=== PATIENT | male | born 1995 | race Caucasian/White ===

== ENCOUNTER 2018-09-03 18:04 | Outpatient (REF) | payer MEDICAID, SELFPAY ==
[2018-09-03 20:47] LABS: Bilirubin Negative (Negative); Blood Negative (Negative); Clarity Clear; Glucose Negative (Negative); Ketones Negative (Negative); Leukocyte Esterase Negative (Negative); Nitrite Negative (Negative); Specific Gravity 1.015 (1.005-1.025); Urobilinogen 0.2 EU/dL (Up TO 0.2); pH 7.5 (5-8)
== END 2018-09-03 18:24 ==
LOC: LBN 18:04
PROVIDERS: PCP General Practice; Visit Provider General Practice
DX: R10.9 Unspecified abdominal pain (principal)
CPT/HCPCS: 81003

== ENCOUNTER 2018-10-07 10:08 | Emergency (ER) | payer MEDICAID, SELFPAY ==
[2018-10-07 10:12] VITALS: BP 112/79; PULSE 98; RESP 16; TEMP 36.6; O2SAT 95
--- NOTE | 2018-10-07 10:13 | W.ED.GENAD ---
Discharge Plan Disposition Patient Disposition: HOME Condition: Stable Discharge Details Chief Complaint: EarProblem Clinical Impression: Acute left otitis media Primary Care Provider: Salas Rodriguez ED Provider: Pradeep Paulino Home Meds and New Rx's Prescriptions: New amoxicillin 875 mg tablet 875 mg PO BID Qty: 20 RF: 0 No Action gabapentin 600 MG tablet 1,200 mg PO BID RF: 0 buprenorphine-naloxone [Suboxone] 1 EACH film 16 mg Sublingual DAILY RF: 0 Vyvanse 60 MG capsule 70 mg PO DAILY RF: 0 ibuprofen 800 MG tablet 800 mg PO Q8H PRN (Reason: Pain) Qty: 15 RF: 0 amoxicillin 875 MG tablet 875 mg PO Q12H Qty: 19 RF: 0 Discharge Instructions Instructions: Otitis Media (ED) Medical Decision Making 23 yo male comes in with left ear pain for a week. denies any trauma or q tip use or swimming. His external mastoids and external auditory canals are normal bilaterally and right tm is normal, left tm is red and bulging. will tx with abx, advised f/u with pcp if not better in a week and return if worsening Differential Diagnosis aom, otitis externa HPI General Mode of arrival: ambulatory. Date/Time Provider Initiated Documentation: 10/07/18 10:09. Limitations to Documentation: no limitations. Information obtained by: patient. History of Present Illness 23 year old M presents to the emergency department with the chief complaint of left ear pain, described as moderate, Quality is described as aching, Patient started experiencing this week(s) (1) and it has been constant. No relieving factors improve symptom(s), No exacerbating factors reported . Patient did receive the following treatments prior to arrival, none Related Data Home Medications Medication Instructions Recorded Confirmed buprenorphine-naloxone [Suboxone] 16 mg SUBLINGUAL DAILY 08/15/15 10/18/17 gabapentin 1,200 mg PO BID 08/15/15 10/18/17 Vyvanse 70 mg PO DAILY 10/16/16 10/07/18 amoxicillin 875 mg PO Q12H #19 tab 10/18/17 ibuprofen 800 mg PO Q8H PRN #15 tablet 10/18/17 amoxicillin 875 mg PO BID #20 tab 10/07/18 Previous Rx's Medication Instructions Recorded amoxicillin 875 mg PO Q12H #19 tab 10/18/17 ibuprofen 800 mg PO Q8H PRN #15 tablet 10/18/17 amoxicillin 875 mg PO BID #20 tab 10/07/18 Allergies Allergy/AdvReac Type Severity Reaction Status Date / Time No Known Allergies Allergy Unverified 10/18/17 18:57 Review of Systems Review of Systems All systems reviewed & are unremarkable except as noted in HPI and below Constitutional Denies chills, Denies fever(s) and Denies weakness ENT Denies change in voice Cardiovascular Denies chest pain and Denies dyspnea Respiratory Denies cough and Denies dyspnea Gastrointestinal Denies abdominal pain, Denies nausea and Denies vomiting Integumentary/Breasts Denies rash Neurologic Denies weakness [facility] Social History Smoking/Tobacco Use Status: Current every day Drug use: Current Sobriety Do you feel safe in your relationship?: Yes Exam Const General: no acute distress Orientation: alert HENMT Head: normal to inspection Ears: external ears normal General nose exam: external nose normal Mouth: moist mucous membranes Eyes General: appearance normal, both eyes and all related structures Neck Neck: normal visual inspection Resp Effort & Inspection: normal respiratory effort and able to speak in complete sentences Cardio Rate: regular rate Skin General skin exam: no rashes or lesions noted Neuro General: alert and oriented x3 Extrem General: normal to inspection Psych Mental Status: mental status grossly normal
--- NOTE | 2018-10-07 10:22 | ED.GENADUL_ITS ---
Discharge Plan Disposition Patient Disposition: HOME Condition: Stable Discharge Details Chief Complaint: EarProblem Clinical Impression: Acute left otitis media Primary Care Provider: Salas Rodriguez ED Provider: Pradeep Paulino Home Meds and New Rx's Prescriptions: New amoxicillin 875 mg tablet 875 mg PO BID Qty: 20 RF: 0 No Action gabapentin 600 MG tablet 1,200 mg PO BID RF: 0 buprenorphine-naloxone [Suboxone] 1 EACH film 16 mg Sublingual DAILY RF: 0 Vyvanse 60 MG capsule 70 mg PO DAILY RF: 0 ibuprofen 800 MG tablet 800 mg PO Q8H PRN (Reason: Pain) Qty: 15 RF: 0 amoxicillin 875 MG tablet 875 mg PO Q12H Qty: 19 RF: 0 Discharge Instructions Instructions: Otitis Media (ED) Medical Decision Making 23 yo male comes in with left ear pain for a week. denies any trauma or q tip use or swimming. His external mastoids and external auditory canals are normal bilaterally and right tm is normal, left tm is red and bulging. will tx with abx, advised f/u with pcp if not better in a week and return if worsening Differential Diagnosis aom, otitis externa HPI General Mode of arrival: ambulatory . Date/Time Provider Initiated Documentation: 10/07/18 10:09 . Limitations to Documentation: no limitations . Information obtained by: patient . History of Present Illness 23 year old M presents to the emergency department with the chief complaint of left ear pain, described as moderate, Quality is described as aching, Patient started experiencing this week(s) (1) and it has been constant. No relieving factors improve symptom(s), No exacerbating factors reported . Patient did receive the following treatments prior to arrival, none Related Data Home Medications Medication Instructions Recorded Confirmed buprenorphine-naloxone [Suboxone] 16 mg SUBLINGUAL DAILY 08/15/15 10/18/17 gabapentin 1,200 mg PO BID 08/15/15 10/18/17 Vyvanse 70 mg PO DAILY 10/16/16 10/07/18 amoxicillin 875 mg PO Q12H #19 tab 10/18/17 ibuprofen 800 mg PO Q8H PRN #15 tablet 10/18/17 amoxicillin 875 mg PO BID #20 tab 10/07/18 Previous Rx's Medication Instructions Recorded amoxicillin 875 mg PO Q12H #19 tab 10/18/17 ibuprofen 800 mg PO Q8H PRN #15 tablet 10/18/17 amoxicillin 875 mg PO BID #20 tab 10/07/18 Allergies Allergy/AdvReac Type Severity Reaction Status Date / Time No Known Allergies Allergy Unverified 10/18/17 18:57 Review of Systems Review of Systems All systems reviewed & are unremarkable except as noted in HPI and below Constitutional Denies chills, Denies fever(s) and Denies weakness ENT Denies change in voice Cardiovascular Denies chest pain and Denies dyspnea Respiratory Denies cough and Denies dyspnea Gastrointestinal Denies abdominal pain, Denies nausea and Denies vomiting Integumentary/Breasts Denies rash Neurologic Denies weakness [facility] Social History Smoking/Tobacco Use Status: Current every day Drug use: Current Sobriety Do you feel safe in your relationship?: Yes Exam Const General: no acute distress Orientation: alert HENMT Head: normal to inspection Ears: external ears normal General nose exam: external nose normal Mouth: moist mucous membranes Eyes General: appearance normal, both eyes and all related structures Neck Neck: normal visual inspection Resp Effort & Inspection: normal respiratory effort and able to speak in complete sentences Cardio Rate: regular rate Skin General skin exam: no rashes or lesions noted Neuro General: alert and oriented x3 Extrem General: normal to inspection Psych Mental Status: mental status grossly normal
== END 2018-10-07 10:51 | disposition home or self-care (01) ==
LOC: ER 10:38
PROVIDERS: Emergency Provider Emergency Medicine; PCP General Practice
DX: H66.92 Otitis media, unspecified, left ear (principal); F17.210 Nicotine dependence, cigarettes, uncomplicated
CPT/HCPCS: 99283

== ENCOUNTER 2019-02-18 17:56 | Emergency (ER) | payer MEDICAID, SELFPAY ==
[2019-02-18 17:58] VITALS: BP 132/80; PULSE 80; RESP 16; TEMP 36.5; O2SAT 96
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
== END 2019-02-18 19:10 | disposition home or self-care (01) ==
PROVIDERS: Emergency Provider Nurse Practitioner Family; PCP General Practice
DX: S90.32XA Contusion of left foot, initial encounter (principal); W26.8XXA Contact with other sharp object(s), not elsewhere classified, initial encounter; L73.9 Follicular disorder, unspecified
CPT/HCPCS: 99282

== ENCOUNTER 2019-08-28 10:21 | Emergency (ER) | payer MEDICAID, SELFPAY ==
[2019-08-28 10:30] VITALS: BP 131/95; PULSE 103; RESP 18; TEMP 36.4; O2SAT 97
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
== END 2019-08-28 11:02 | disposition home or self-care (01) ==
PROVIDERS: Emergency Provider Emergency Medicine
DX: N50.811 Right testicular pain (principal)
CPT/HCPCS: 99282

== ENCOUNTER 2019-12-02 20:44 | Emergency (ER) | payer MEDICAID, SELFPAY ==
[2019-12-02 20:51] VITALS: BP 139/83; PULSE 97; RESP 18; TEMP 36.9; O2SAT 99
[2019-12-02 22:00] LABS: Abs Immature Grans 0.01 k/cumm (0.0-0.09); Absolute Basophil Count 0.05 k/cumm (0.0-0.2); Absolute Eosinophil Count 0.21 k/cumm (0.0-0.7); Absolute Monocyte Count 0.65 k/cumm (0.11-0.7); Absolute Neutrophil Count 2.22 k/cumm (1.2-6.7); Basophils % 0.8; Eosinophils % 3.5; HCT 40.9 % (40.0-50.0); HGB 14.3 g/dL (13.5-17.5); Immature Grans % 0.2 %; Lymphocytes % 47.1; Mean Corpuscular Hemoglobin 29.5 pg (27.0-33.0); Mean Corpuscular Volume 84.5 fL (80-95); Mean Platelet Volume 10.2 fL (8.0-11.0); Monocytes % 10.9; Neutrophils % 37.5; Platelet Count 296 x1000/uL (130-400); RBC 4.84 m/cumm (4.50-6.00); RBC Distribution Width 12.4 % (11.8-14.1); White Blood Cell Count 5.94 k/cumm (4.4-10.8)
[2019-12-02 22:10] LABS: ALT 56 U/L (16-63); AST 22 U/L (15-37); Albumin 4.2 g/dL (3.4-5.0); Alkaline Phosphatase 107 U/L (46-116); Anion Gap 4.7 mmol/L (3-11); BUN 14 mg/dL (7-18); Bilirubin, Total 0.4 mg/dL (0.2-1.0); CO2 31.3 mmol/L (21.0-32.0); CREATININE 0.91 mg/dL (0.70-1.30); Chloride 104 mmol/L (98-107); Glucose 106 mg/dL (74-106); Sodium 140 mmol/L (136-145); Total Protein 7.7 g/dL (6.4-8.2)
[2019-12-02 22:12] LABS: Bilirubin Negative (Negative); Blood Negative (Negative); Clarity Sl Cloudy (Clear); Glucose Negative (Negative); Ketones Negative (Negative); Leukocyte Esterase Negative (Negative); Nitrite Negative (Negative); Specific Gravity 1.025 (1.005-1.025); pH 8.5 (5-8)
--- NOTE | 2019-12-02 22:13 | ED.GENADUL_ITS ---
Discharge Plan Disposition Patient Disposition: HOME Condition: Stable Discharge Details Chief Complaint: Abd Prob Clinical Impression: Abdominal pain Primary Care Provider: Megha,Local ED Provider: Jong Lebron Home Meds and New Rx's Prescriptions: Continued gabapentin 600 MG tablet 1,200 mg PO BID RF: 0 buprenorphine-naloxone [Suboxone] 1 EACH film 16 mg Sublingual DAILY RF: 0 Vyvanse 60 MG capsule 70 mg PO DAILY RF: 0 Discharge Instructions Instructions: Abdominal Pain (ED) Additional Instructions: As we discussed your evaluation here in the ER does not reveal any obvious emergent or surgical process. I recommend ylnq-qsd-quwraer medications such as Zantac or Prilosec as directed to see if this helps with your symptoms moving forward. I do recommend that she watch for new or worsening symptoms and return to the ER for any concerns. I have placed you on the care management list to help expedite outpatient primary care follow-up. If symptoms persist referral to GI and/or additional work-up may be indicated. Medical Decision Making 24-year-old gentleman presenting with what he describes as chronic abdominal discomfort his entire life. Reports as a burning in nature. Mild nausea but no vomiting. He denies any other symptoms whatsoever. He appears well, nontoxic. Given the location of his discomfort associated with burning I do question if this could be GERD, gastritis, etc. Patient does not abuse alcohol, lower suspicion for pancreatitis. Patient denies any recent trauma, no reason for this to be splenic related. I see no obvious hernia. Will obtain CBC, CMP, UA, lipase, will give GI cocktail and reassess. On reevaluation patient reports that the symptoms have been removed completely with a GI cocktail. He is resting comfortably and using his phone without difficulty. Prior meds reveal a white blood cell count of 5.94 hemoglobin 14.3 hematocrit 40.9 platelet count 296. Electrolytes are unremarkable. Creatinine 0.91, estimated GFR greater than 60. Urinalysis without obvious signs of infection or hematuria. Lipase unremarkable. Discussed work-up with patient. He is relieved and has no additional questions or concerns. Discussed an [id number]-yloosrg trial of medication such as Zantac or Prilosec to see if this helps with the symptoms on a more regular basis. I did stress the importance of outpatient follow-up and I have placed him on the care management team to help expedite outpatient care. Patient has no additional questions or concerns and is comfortable with this plan. Medical Records Medical records reviewed: Yes I reviewed the patient's medical records. Lab Data Lab results reviewed: Yes I reviewed the patient's lab results. Lab results narrative: Laboratory Tests Range/Units 12/02/19 12/02/19 12/02/19 21:55 21:55 21:56 WBC (4.4-10.8) k/cumm 5.94 RBC (4.50-6.00) m/cumm 4.84 Hgb (13.5-17.5) g/dL 14.3 Hct (40.0-50.0) % 40.9 MCV (80-95) fL 84.5 MCH (27.0-33.0) pg 29.5 MCHC (32.0-36.0) g/dL 35.0 RDW (11.8-14.1) % 12.4 Plt Count (130-400) x1000/uL 296 MPV (8.0-11.0) fL 10.2 Immature Gran % % 0.2 Neutrophils % 37.5 Lymphocytes % 47.1 Monocytes % 10.9 Eosinophils % 3.5 Basophils % 0.8 Absolute Neutrophils (1.2-6.7) k/cumm 2.22 Absolute Lymphocytes (1.2-3.4) k/cumm 2.80 Absolute Monocytes (0.11-0.7) k/cumm 0.65 Absolute Eosinophils (0.0-0.7) k/cumm 0.21 Absolute Basophils (0.0-0.2) k/cumm 0.05 Sodium (136-145) mmol/L 140 Potassium (3.5-5.1) mmol/L 4.0 Chloride (98-107) mmol/L 104 Carbon Dioxide (21.0-32.0) mmol/L 31.3 Anion Gap (3-11) mmol/L 4.7 BUN (7-18) mg/dL 14 Creatinine (0.70-1.30) mg/dL 0.91 Estimated GFR/1.73 m2 (mL/min/1.73m2) >= 60.00 Glucose (74-106) mg/dL 106 Calcium (8.5-10.1) mg/dL 9.0 Total Bilirubin (0.2-1.0) mg/dL 0.4 AST (15-37) U/L 22 ALT (16-63) U/L 56 Alkaline Phosphatase (46-116) U/L 107 Total Protein (6.4-8.2) g/dL 7.7 Albumin (3.4-5.0) g/dL 4.2 Urine Color (Yellow) Yellow Urine Clarity (Clear) Sl cloudy Urine pH (5-8) 8.5 H Ur Specific [place] (1.005-1.025) 1.025 Urine Protein (Negative) mg/dL 100 H Urine Ketones (Negative) mg/dL Negative Urine Blood (Negative) Negative Urine Nitrite (Negative) Negative Urine Bilirubin (Negative) Negative Urine Urobilinogen (Up TO 0.2) EU/dL 1.0 H Ur Leukocyte Esterase (Negative) Negative Urine RBC (0-2) HPF 3-5 H Urine WBC (0-5) HPF Negative Ur Epithelial Cells (Negative) HPF Negative Urine Crystals (Negative) HPF Many amorphous Urine Bacteria (Negative) HPF Negative Urine Casts (Negative) LPF Negative Urine Mucus (Negative) Negative Urine Other (Negative) Negative Ur Culture Indicated? No Urine Glucose (Negative) mg/dL Negative HPI General Mode of arrival: ambulatory . Date/Time Provider Initiated Documentation: 12/02/19 21:04 . Limitations to Documentation: no limitations . Information obtained by: patient . HPI Narrative: This is a 24-year-old male with history of bipolar disorder, narcotic abuse, admits to methamphetamine IV injection use, last used 4 days ago, presenting with spleen pain. He reports that he said pain in his epigastric region and left upper quadrant all my life but reports that he may have noticed it slightly more over the past 24 hours. He describes it as burning. He reports intermittent mild nausea but no vomiting. He denies any change in appetite, was able to eat sloppy [employer] for dinner tonight. Patient reports I know my spleen is in that area, I think it is my spleen that hurts. He denies any recent illness or trauma. Patient denies fever, chest pain, shortness of breath, back pain, radiation of his abdominal pain, diarrhea, constipation, dysuria or hematuria. He denies alcohol abuse. Patient reports that occasionally he feels as though that area is swollen. Related Data Home Medications Medication Instructions Recorded Confirmed buprenorphine-naloxone [Suboxone] 16 mg SUBLINGUAL DAILY 08/15/15 12/02/19 gabapentin 1,200 mg PO BID 08/15/15 12/02/19 Vyvanse 70 mg PO DAILY 10/16/16 12/02/19 Allergies Allergy/AdvReac Type Severity Reaction Status Date / Time No Known Allergies Allergy Unverified 08/28/19 10:33 General Stated Complaint: Abd Prob LENARD: 3 Review of Systems Constitutional Constitutional: Denies fatigue, Denies fever(s) and Denies weakness Cardiovascular Cardiovascular: Denies chest pain and Denies dyspnea Respiratory Respiratory: Denies cough and Denies dyspnea Gastrointestinal Gastrointestinal: Reports abdominal pain, Denies constipation, Denies diarrhea, Reports nausea and Denies vomiting Genitourinary Genitourinary: Denies hematuria and Denies dysuria Musculoskeletal Musculoskeletal: Denies back pain, Denies numbness and Denies tingling Integumentary/Breasts Skin/Breast: Denies rash Neurologic Neurologic: Denies numbness, Denies tingling and Denies weakness Endocrine Endocrine: Denies fatigue [facility] Medical History Bipolar disorder (Chronic) Narcotic abuse (Chronic) Social History Smoking/Tobacco Use Status: Current every day Tobacco Type: cigarettes Years smoked: 10 and e-cigarettes Alcohol Intake: never Drug use: Socially Substance use type: methamphetamine Details: reports using meth IV for past month 12/02/2019 Do you feel safe at home: Yes Do you feel safe in your relationship?: Yes Exam Const General: cooperative, healthy appearing, comfortable and no acute distress Orientation: alert, awake and oriented x3 HENMT Head: normal to inspection, normocephalic and atraumatic Mouth: moist mucous membranes Throat: posterior oropharynx normal Eyes Conjunctivae: conjunctivae normal Sclera: sclerae normal Neck Neck: normal visual inspection, full ROM, no meningeal signs, trachea midline and supple Chest Chest: normal inspection of the chest and normal palpation of entire chest wall Resp Effort & Inspection: normal respiratory effort and able to speak in complete sentences Auscultation: clear to auscultation bilaterally Cardio Rate: regular rate Rhythm: regular rhythm GI Inspection: normal to inspection Palpation: soft, not firm, no guarding, no hepatosplenomegaly, no hernias, no masses, no pulsatile masses, not rigid and nontender Auscultation: normal bowel sounds Back/Spine/Pelvis Back: No back tenderness Skin General skin exam: no rashes or lesions noted Neuro General: patient alert, patient awake, moves all extremities and no focal motor deficits Cognition: normal cognition Speech: speech normal Gait: normal gait Motor: muscle tone normal throughout Sensory Exam: no sensory deficits noted Psych Appearance: grossly normal Mental Status: mental status grossly normal Course Vital Signs Vital signs: Vital Signs Temperature 36.9 C 12/02/19 20:51 Pulse 97 H 12/02/19 20:51 Respiratory Rate 18 12/02/19 20:51 Blood Pressure 139/83 12/02/19 20:51 Pulse Oximetry 99 12/02/19 20:51 Temperature 36.9 C 12/02/19 20:51 Temperature Source Skin 12/02/19 20:51 Pulse 97 H 12/02/19 20:51 Respiratory Rate 18 12/02/19 20:51 Respiratory Effort 12/02/19 20:53 Blood Pressure 139/83 12/02/19 20:51 Blood Pressure Position Sitting 12/02/19 20:51 Pulse Oximetry 99 12/02/19 20:51 Oxygen Delivery Method Room Air 12/02/19 20:51 Oxygen Flow Rate 0 12/02/19 20:51 Pain Level 5 12/02/19 20:51 Lab/Test Results Lab/Test Results: Laboratory Tests Range/Units 12/02/19 12/02/19 21:55 21:55 WBC (4.4-10.8) k/cumm 5.94 RBC (4.50-6.00) m/cumm 4.84 Hgb (13.5-17.5) g/dL 14.3 Hct (40.0-50.0) % 40.9 MCV (80-95) fL 84.5 MCH (27.0-33.0) pg 29.5 MCHC (32.0-36.0) g/dL 35.0 RDW (11.8-14.1) % 12.4 Plt Count (130-400) x1000/uL 296 MPV (8.0-11.0) fL 10.2 Immature Gran % % 0.2 Neutrophils % 37.5 Lymphocytes % 47.1 Monocytes % 10.9 Eosinophils % 3.5 Basophils % 0.8 Absolute Neutrophils (1.2-6.7) k/cumm 2.22 Absolute Lymphocytes (1.2-3.4) k/cumm 2.80 Absolute Monocytes (0.11-0.7) k/cumm 0.65 Absolute Eosinophils (0.0-0.7) k/cumm 0.21 Absolute Basophils (0.0-0.2) k/cumm 0.05 Sodium (136-145) mmol/L 140 Potassium (3.5-5.1) mmol/L 4.0 Chloride (98-107) mmol/L 104 Carbon Dioxide (21.0-32.0) mmol/L 31.3 Anion Gap (3-11) mmol/L 4.7 BUN (7-18) mg/dL 14 Creatinine (0.70-1.30) mg/dL 0.91 Estimated GFR/1.73 m2 (mL/min/1.73m2) >= 60.00 Glucose (74-106) mg/dL 106 Calcium (8.5-10.1) mg/dL 9.0 Total Bilirubin (0.2-1.0) mg/dL 0.4 AST (15-37) U/L 22 ALT (16-63) U/L 56 Alkaline Phosphatase (46-116) U/L 107 Total Protein (6.4-8.2) g/dL 7.7 Albumin (3.4-5.0) g/dL 4.2
--- NOTE | 2019-12-02 22:15 | NUR.NOTE ---
Nursing Note: REFERAL COPIED FOR cm 12/02/19
[2019-12-02 22:24] LABS: Bacteria Negative HPF (Negative); C & S Indicated? No; Casts Negative LPF (Negative); Crystals Many Amorphous HPF (Negative); Epithelial Cells Negative HPF (Negative); Mucus Negative (Negative); Other Cells Negative (Negative); WBC Negative HPF (0-5)
[2019-12-02 22:34] LABS: Lipase 72 U/L (73-393)
[2019-12-02 22:35] VITALS: BP 121/76; PULSE 74; RESP 16; TEMP 36.6; O2SAT 100
--- NOTE | 2019-12-03 11:12 | PDOC.ERCMPRO ---
- If Service Date Differs Date of service: 12/03/19 Time of Service: 11:12 Care Management Progress Note At the request of ED provider, CM coordinates referral to teledoc - Jeane Caruso aprn, of [facility] to assist patient in establishing care with a PCP.
== END 2019-12-02 22:35 | disposition home or self-care (01) ==
PROVIDERS: Emergency Provider Physician Assistant
DX: R10.12 Left upper quadrant pain (principal); R10.13 Epigastric pain; R11.0 Nausea; F15.10 Other stimulant abuse, uncomplicated; F31.9 Bipolar disorder, unspecified
CPT/HCPCS: 36415; 80053; 83690; 99283; 81003; 81015; 85025

== ENCOUNTER 2021-04-26 08:09 | Emergency (ER) | payer MEDICAID, SELFPAY ==
[2021-04-26 08:20] VITALS: BP 151/98; PULSE 117; RESP 18; TEMP 36.1; O2SAT 100
--- NOTE | 2021-04-26 08:53 | ED.GENADUL_ITS ---
Discharge Plan Disposition Patient Disposition: HOME Condition: Good Discharge Details Clinical Impression: Other stimulant use, unspecified, uncomplicated, Mass of arm Primary Care Provider: None,None ED Provider: Ana Laura Narayan Home Meds and New Rx's Prescriptions: Continued gabapentin 600 MG tablet 1,200 mg PO TID RF: 0 buprenorphine-naloxone [Suboxone] 1 EACH film 16 mg Sublingual DAILY RF: 0 Vyvanse 60 MG capsule 70 mg PO DAILY RF: 0 Discharge Instructions Additional Instructions: Please make sure your counselor no that you are injecting Ritalin while taking your Vyvanse, using this much stimulant can cause a heart attack You have a mass in your arm, you have declined an ultrasound during this visit, I have scheduled you an outpatient ultrasound, if you do schedule a future appointment, please go to your appointment You are also ordering a send out Covid test, you should isolate and not be around other people until the test returned in about 36 hours Should you have worsening symptoms, chest pain, shortness of breath, or with any new or progressing, please return to the emergency room for reassessment he will Discharge Data Discharge Date/Time-TO BE ENTERED AT DEPARTURE: 04/26/21 09:34 Medical Decision Making Patient is afebrile and nontoxic, he is alert, oriented, of decisional capacity, my suspicion is low for DVT, however he did recommend ultrasound for further investigation, patient states that he would like to leave, he gets nervous in the hospital and is requesting that we order an outpatient ultrasound He states that he finally has acquired his high from his Focalin and would like to go get his Suboxone treatment He is alert, oriented, of decisional capacity, outpatient ultrasound ordered with patient made aware regarding need for follow-up It is concerning that he is injecting Focalin and taking Vyvanse daily him Suboxone, he is instructed to let his doctor know that he is combining these medications He is no longer using methamphetamine from the street which is reassuring There is no evidence of secondary cellulitis There is no chest pain or shortness of breath Patient is calm and cooperative throughout encounter Initially tachycardic, this is improved Instructed to call PCP tomorrow for outpatient follow-up and to return immediately with new or worsening complaints Medical Records Medical records reviewed: Yes I reviewed the patient's medical records. Lab Data Lab results reviewed: Yes I reviewed the patient's lab results. HPI General Mode of arrival: ambulatory . Date/Time Provider Initiated Documentation: 04/26/21 08:28 . Limitations to Documentation: no limitations . Information obtained by: patient . HPI Narrative: 26-year-old presents with report of arm pain. He is an IV drug user, he injects Ritalin. He injected prior to arrival and states he did not have a mediated reaction . He began to feel up his arm and noticed a lump in the mid humerus region. He was concerned he might have a blood clot. He denies any chest pain, shortness of breath, dizziness, weakness. He otherwise feels quite well. He does state he had upper respiratory symptoms last week and his girlfriend is sick with similar symptoms. He did have a Covid test which was inconclusive. Related Data Home Medications Medication Instructions Recorded Confirmed buprenorphine-naloxone [Suboxone] 16 mg SUBLINGUAL DAILY 08/15/15 04/26/21 gabapentin 1,200 mg PO TID 08/15/15 04/26/21 Vyvanse 70 mg PO DAILY 10/16/16 04/26/21 Allergies Allergy/AdvReac Type Severity Reaction Status Date / Time No Known Allergies Allergy Unverified 04/26/21 08:25 General Stated Complaint: Vascular LENARD: 3 Review of Systems All systems reviewed & are unremarkable except as noted in HPI and below PFS Medical History (Updated 04/26/21 @ 09:01 by CHATO Knott) Bipolar disorder Narcotic abuse Social History Smoking/Tobacco Use Status: Current every day Tobacco Type: cigarettes Years smoked: 10 and e-cigarettes Smoking risk assessment performed?: Yes Alcohol Intake: never Drug use: Daily Substance use type: methamphetamine and prescription drug Details: reports using meth IV for past month 12/02/2019 Do you feel safe at home: Yes Do you feel safe in your relationship?: Yes Exam Const General: cooperative Orientation: alert and oriented x3 HENMT Head: normal to inspection and atraumatic Eyes Pupils: PERRL Resp Effort & Inspection: normal respiratory effort Auscultation: clear to auscultation bilaterally Cardio Rate: tachycardic Rhythm: regular rhythm Neuro General: patient alert and patient oriented x3 Extrem Other: Left upper extremity with approximately 1 inch mass noted to left upper extremity, and medial elbow region, approximately 1 inch superior to, nontender, no swelling Distal pulses intact, strength and sensation intact Course Vital Signs Vital signs: Vital Signs Temperature 36.1 C L 04/26/21 08:20 Pulse 117 H 04/26/21 08:20 Respiratory Rate 18 04/26/21 08:20 Blood Pressure 151/98 H 04/26/21 08:20 Pulse Oximetry 100 04/26/21 08:20 Temperature 36.1 C L 04/26/21 08:20 Temperature Source Temporal Artery Scan 04/26/21 08:20 Pulse 117 H 04/26/21 08:20 Respiratory Rate 18 04/26/21 08:20 Respiratory Effort Non-Labored 04/26/21 08:27 Blood Pressure 151/98 H 04/26/21 08:20 Blood Pressure Position Sitting 04/26/21 08:20 Pulse Oximetry 100 04/26/21 08:20 Oxygen Delivery Method Room Air 04/26/21 08:20 Oxygen Flow Rate 0 04/26/21 08:20
[2021-04-26 08:56] VITALS: PULSE 103; RESP 19
[2021-04-26 09:34] VITALS: BP 128/78; PULSE 98; RESP 19; TEMP 36.3; O2SAT 97
[2021-04-27 16:11] LABS: COVID-19 RT-PCR UVMMC Result Indeterminate (Negative)
== END 2021-04-26 09:34 | disposition home or self-care (01) ==
PROVIDERS: Emergency Provider Physician Assistant
DX: R22.32 Localized swelling, mass and lump, left upper limb (principal); F15.10 Other stimulant abuse, uncomplicated; F11.20 Opioid dependence, uncomplicated; Z20.822 Contact with and (suspected) exposure to COVID-19
CPT/HCPCS: 99281; U0003; 99282

== ENCOUNTER 2021-12-28 19:29 | Emergency (ER) | payer MEDICAID, SELFPAY ==
[2021-12-28 19:33] VITALS: BP 128/70; PULSE 103; RESP 14; TEMP 37.6; O2SAT 99
--- NOTE | 2021-12-28 19:45 | DI.CT_ITS ---
Exam(s) CT ABDOMEN PELVIS W EXAM: CT ABDOMEN PELVIS W CLINICAL HISTORY: upper abdomen pain, lower gi bleed. TECHNIQUE: Imaging Protocol: Axial computed tomography images with coronal and sagittal reformatted images were created and reviewed CONTRAST MATERIAL: Intravenous: Omnipaque 100cc Oral: None COMPARISON: No exams were available for comparison FINDINGS: VISUALIZED LUNG BASES: No nodules nor pleural effusions evident. ABDOMEN: There is no ascites. LIVER: There are no focal hepatic lesions evident. Mild hepatic steatosis. GALLBLADDER/BILIARY: No obvious gallbladder pathology. CBD is not dilated. PANCREAS: No evidence of pancreatic mass nor dilatation of the pancreatic duct. SPLEEN: Spleen is not enlarged. No obvious intrasplenic lesions. Splenic and portal veins are paten t. ADRENALS: There are no significant adrenal masses. KIDNEYS:No cysts evident. No solid renal masses. No calculi nor hydronephrosis.. ABDOMINAL AORTA: Abdominal aorta is not enlarged. LYMPH NODES:There is no retroperitoneal nor paraaortic adenopathy. ABDOMINAL WALL: No evidence of significant anterior abdominal wall nor inguinal hernia. GI: There is no evidence of bowel obstruction, free air, nor abscess. PELVIS: GI: The appendix is slightly thicker than normal, measuring up to 9 millimeters diameter, and there i s no air within the appendix. There is no true periappendiceal streaking and there is no intralumina l appendicular lith.No evidence of sigmoid diverticulitis.However, there is a colitis pattern evident in the left descending colon and sigmoid-rectosigmoid. No free fluid. LYMPH NODES: There is no intrapelvic nor inguinal adenopathy. REPRODUCTIVE: Prostate not enlarged. Seminal vesicles unremarkable. URINARY BLADDER: No calculi nor obvious masses evident OSSEOUS: No significant osseous lesions. Sacroiliac joints unremarkable. No fractures. IMPRESSION: 1. There is circumferential wall edema of the descending left and rectosigmoid:, Consistent with coli tis. Workup for ulcerative colitis recommended. 2. The appendix diameter measures up to 9 millimeters which is slightly prominent. Although there is no Shobha appendiceal streaking, there is absence of air-gas within the appendix lumen, also somewhat suspicious. There is no calcified appendiculolith. First read by [facility]. Final report called by myself to ER provider 12/29/2021 RADIATION DOSE DELIVERED: 948.1mGy.cm Total DLP DATA REPOSITORY: All CT scans at this facility are submitted to the National Radiology Data Registry (NRDR) Dose Index Registry (DIR) with the [employer] (A[employer]). RADIATION OPTIMIZATION: All CT scans at this facility use at least one of these dose optimization te chniques: automated exposure control; mA and/or kV adjustment per patient size (includes targeted exa ms where dose is matched to clinical indication); or iterative reconstruction.
--- NOTE | 2021-12-28 19:47 | ED.GENADUL_ITS ---
Discharge Plan Disposition Patient Disposition: HOME Condition: Stable Discharge Details Clinical Impression: Colitis Primary Care Provider: None,None ED Provider: Pradeep Paulino Home Meds and New Rx's Prescriptions: New amoxicillin-pot clavulanate 875-125 mg tablet 1 tab PO BID Qty: 14 0RF prednisone 20 mg tablet 60 mg PO DAILY 4 Days Qty: 12 0RF amoxicillin-pot clavulanate 875-125 mg tablet 1 tab PO BID Qty: 14 0RF prednisone 20 mg tablet 60 mg PO DAILY 4 Days Qty: 12 0RF Continued gabapentin 600 MG tablet 1,200 mg PO TID buprenorphine-naloxone [Suboxone] 1 EACH film 16 mg Sublingual DAILY Label Comments: 16mg daily Vyvanse 60 MG capsule 70 mg PO DAILY Discharge Instructions Instructions: Colitis (ED) Additional Instructions: Your cat scan showed you had inflammation of part of the colon if symptoms continue this week follow up with your primary care provider within 1 week if you feel more ill, have severe worsening symptoms or pain return to the emergency department Medical Decision Making 26 yo male who comes in with bloody stools starting earlier today. He states yesterday he felt fine but this morning woke up with diarrhea and epigastric discomfort. He then developed bloody stools all day today so came here. He denies fevers, chills, travel, chest pain, dyspnea. He arrives stable and is in no distress on exam. He has no lower abdominal tenderness, has mild epigastric tenderness. He has no hemorrhoid on rectal exam and no bleeding on exam currently even on internal exam, no massess or other abnormalities palpated. Given his pain and the bleeding suspect colitis, will obtain labs including cbc, cmp, lipase and obtain ct abd/pelvis to further evaluate. labs unremarkable, and ct shows moderate descending and sigmoid colitis. He feels better and is stable for d/c. Given this is a colitis will have her f/u with pcp if symptoms continue this week, this could be first episode of inflammatory bowel disease, return precautions given. Differential Diagnosis Differential Diagnosis: colitis, internal hemorrhoid, diveritulitis Imaging Data Radiologic Study: Attestation: I personally reviewed and interpreted this imaging study as follows: Imaging: CT Scan Radiologist's impression: IMPRESSION: Moderate descending and sigmoid colitis. Lab Data Lab results reviewed: Yes I reviewed the patient's lab results. HPI General Mode of arrival: ambulatory . Date/Time Provider Initiated Documentation: 12/28/21 19:29 . Limitations to Documentation: no limitations . History of Present Illness 26 year old M presents to the emergency department with the chief complaint of bloody stools, described as moderate, Patient started experiencing this day(s) (1) and it has been constant. No relieving factors improve symptom(s), No exacerbating factors reported . Patient notes denies nausea/vomiting. Patient did receive the following treatments prior to arrival, none Related Data Home Medications Medication Instructions Recorded Confirmed buprenorphine 8 mg-naloxone 2 mg 16 mg sublingual DAILY 08/15/15 12/28/21 sublingual film (Suboxone) gabapentin 600 mg tablet 1,200 mg PO TID 08/15/15 12/28/21 lisdexamfetamine 60 mg capsule 70 mg PO DAILY 10/16/16 12/28/21 (Vyvanse) amoxicillin 875 mg-potassium 1 tab PO BID #14 tabs 12/28/21 clavulanate 125 mg tablet amoxicillin 875 mg-potassium 1 tab PO BID #14 tabs 12/28/21 clavulanate 125 mg tablet prednisone 20 mg tablet 60 mg PO DAILY 4 days #12 tabs 12/28/21 prednisone 20 mg tablet 60 mg PO DAILY 4 days #12 tabs 12/28/21 Previous Rx's Medication Instructions Recorded amoxicillin 875 mg-potassium 1 tab PO BID #14 tabs 12/28/21 clavulanate 125 mg tablet amoxicillin 875 mg-potassium 1 tab PO BID #14 tabs 12/28/21 clavulanate 125 mg tablet prednisone 20 mg tablet 60 mg PO DAILY 4 days #12 tabs 12/28/21 prednisone 20 mg tablet 60 mg PO DAILY 4 days #12 tabs 12/28/21 Allergies Allergy/AdvReac Type Severity Reaction Status Date / Time No Known Allergies Allergy Unverified 12/28/21 19:36 General Stated Complaint: Abd Prob LENARD: 3 Review of Systems All systems reviewed & are unremarkable except as noted in HPI and below Constitutional Constitutional: Denies chills, Denies fever(s) and Denies weakness Cardiovascular Cardiovascular: Denies chest pain and Denies dyspnea Respiratory Respiratory: Denies cough and Denies dyspnea Gastrointestinal Gastrointestinal: Denies nausea and Denies vomiting Genitourinary Genitourinary: Denies dysuria Musculoskeletal Musculoskeletal: Denies joint swelling Integumentary/Breasts Skin/Breast: Denies rash Neurologic Neurologic: Denies weakness PFSH All Active Problems (Updated 12/28/21 @ 21:42 by Pradeep Paulino MD) Other stimulant use, unspecified, uncomplicated (Acute) Mass of arm (Acute) Colitis (Acute) Medical History (Updated 12/28/21 @ 21:42 by Pradeep Paulino MD) Bipolar disorder Narcotic abuse Social History Smoking/Tobacco Use Status: Current every day Tobacco Type: cigarettes Years smoked: 10 and e-cigarettes Smoking risk assessment performed?: Yes Alcohol Intake: never Drug use: Current Sobriety Substance use type: methamphetamine and prescription drug Details: reports using meth IV for past month 12/02/2019 Do you feel safe at home: Yes Do you feel safe in your relationship?: Yes Exam Const General: no acute distress Orientation: alert HENMT Head: normal to inspection Ears: external ears normal General nose exam: external nose normal Mouth: moist mucous membranes Eyes General: appearance normal, both eyes and all related structures Neck Neck: normal visual inspection Resp Effort & Inspection: normal respiratory effort and able to speak in complete sentences Cardio Rate: regular rate GI Palpation: soft and nontender Skin General skin exam: no rashes or lesions noted Neuro General: patient alert and patient oriented x3 Extrem General: normal to inspection Psych Mental Status: mental status grossly normal Course Vital Signs Vital signs: Vital Signs Temperature 37.6 C H 12/28/21 19:33 Pulse 103 H 12/28/21 19:33 Respiratory Rate 14 12/28/21 19:33 Blood Pressure 128/70 12/28/21 19:33 Pulse Oximetry 99 12/28/21 19:33 Temperature 37.6 C H 12/28/21 19:33 Temperature Source Skin 12/28/21 19:33 Pulse 103 H 12/28/21 19:33 Respiratory Rate 14 12/28/21 19:33 Respiratory Effort Non-Labored 12/28/21 19:37 Blood Pressure 128/70 12/28/21 19:33 Blood Pressure Position Sitting 12/28/21 19:33 Pulse Oximetry 99 12/28/21 19:33 Oxygen Delivery Method Room Air 12/28/21 19:33 Oxygen Flow Rate 0 12/28/21 19:33 Pain Level 6 12/28/21 19:37
[2021-12-28 19:50] LABS: Source Nasal/Nares
[2021-12-28] MEDS: Normal Saline 1,000 ML 1000 ML IV (20:15)
[2021-12-28 20:23] LABS: Abs Immature Grans 0.03 10^3/uL (0.0-0.06); Absolute Basophil Count 0.08 10^3/uL (0.0-0.2); Absolute Lymphocyte Count 2.69 10^3/uL (1.2-3.4); Basophils % 0.6; Immature Grans % 0.2; MCH 29.2 pg (27.0-33.0); MCHC 34.8 % (32.0-36.0); MCV 84 fL (80-95); Neutrophils % 68.2; Platelet Count 307 10^3/uL (130-400); RBC 5.48 10^6/uL (4.36-5.78); RDW 12.4 % (11.8-14.1); WBC 12.82 10^3/uL (4.4-10.8)
[2021-12-28 20:24] LABS: Absolute Eosinophil Count 0.26 10^3/uL (0.0-0.7); Absolute Monocyte Count 1.03 10^3/uL (0.1-0.8); Absolute Neutrophil Count 8.74 10^3/uL (1.2-6.7)
[2021-12-28] MEDS: Ketorolac 15 MG/ML VIAL IVP (20:24)
[2021-12-28 20:38] LABS: PTT Activated 27.1 sec (21.0-27.5); Prothrombin Time 10.1 sec (9.3-11.0)
[2021-12-28 20:39] LABS: ALT 44 U/L (16-63); AST 20 U/L (15-37); Albumin 4.4 g/dL (3.4-5.0); Alkaline Phosphatase 128 U/L (46-116); Anion Gap 7.5 mmol/L (3-11); BUN 17 mg/dL (7-18); Bilirubin, Direct 0.1 mg/dL (0.0-0.2); Bilirubin, Total 0.7 mg/dL (0.2-1.0); CO2 30.5 mmol/L (21.0-32.0); CREATININE 0.9 mg/dL (0.70-1.30); Calcium 9.4 mg/dL (8.5-10.1); Chloride 101 mmol/L (98-107); Glucose 102 mg/dL (74-106); Lipase 30 U/L (73-393); Magnesium 1.7 mg/dL (1.8-2.4); Potassium 4.1 mmol/L (3.5-5.1); Sodium 139 mmol/L (136-145); Total Protein 8.5 g/dL (6.4-8.2)
[2021-12-28] MEDS: Omnipaque 350 MG/ML 100 ML BTL IJ (21:00)
[2021-12-28 21:14] LABS: COVID-19 PCR Negative (Negative)
--- NOTE | 2021-12-28 21:23 | DI.VRAD_ITS ---
PROCEDURE INFORMATION: Exam: CT Abdomen And Pelvis With Contrast Exam date and time: 12/28/2021 20:57 Age: 26 years old Clinical indication: Abdominal pain; Localized; Upper; Additional info: Upper abdomen pain, lower gi bleed TECHNIQUE: Imaging protocol: Computed tomography of the abdomen and pelvis with contrast. Radiation optimization: All CT scans at this facility use at least one of these dose optimization techniques: automated exposure control; mA and/or kV adjustment per patient size (includes targeted exams where dose is matched to clinical indication); or iterative reconstruction. Contrast material: OMNI 350; Contrast volume: 100 ml; Contrast route: INTRAVENOUS (IV); COMPARISON: SCROTUM US 07/03/2017 16:43 FINDINGS: Liver: No mass. Gallbladder and bile ducts: No calcified stones. No ductal dilation. Pancreas: No ductal dilation. No masses. Spleen: No splenomegaly or focal lesions. Adrenal glands: No mass. Kidneys and ureters: No renal masses or hydronephrosis bilaterally. Stomach and bowel: Moderate wall thickening in descending and sigmoid colon. No obstruction. No significant diverticular disease. No focal pathology in the small bowel. Appendix: No evidence of appendicitis. Intraperitoneal space: No free air. No significant fluid collection. Vasculature: No abdominal aortic aneurysm. Lymph nodes: No significantly enlarged lymph nodes. Urinary bladder: Unremarkable as visualized. Reproductive: Unremarkable as visualized. Bones/joints: No acute fracture. Soft tissues: No suspicious lesions. IMPRESSION: Moderate descending and sigmoid colitis. Dictated and Authenticated by: Bibiana Stephenson MD. Ordering:STEPHEN Fernández MD
[2021-12-28] MEDS: predniSONE 20 MG TAB 60 MG PO (21:46)
[2021-12-28] MEDS: Amoxicillin 875/Clav. 125 TAB PO (21:46)
[2021-12-28 21:49] VITALS: BP 117/84; PULSE 80; RESP 14; TEMP 36.6; O2SAT 99
[2021-12-28 22:08] VITALS: BP 117/84; PULSE 80; RESP 14; TEMP 36.6; O2SAT 99
== END 2021-12-28 22:08 | disposition home or self-care (01) ==
PROVIDERS: Emergency Provider Emergency Medicine
DX: K52.9 Noninfective gastroenteritis and colitis, unspecified (principal); F17.210 Nicotine dependence, cigarettes, uncomplicated; F17.290 Nicotine dependence, other tobacco product, uncomplicated; Z20.822 Contact with and (suspected) exposure to COVID-19
CPT/HCPCS: 36415; 80053; 83690; 86850; 86900; 86901; 87635; 96361; 96374; 99285; 74177; 82248; 83735; 85025; 85610; 85730; 99284; J1885; J3490; J7512

== ENCOUNTER 2023-04-16 19:34 | Outpatient (REF) | payer MEDICAID, SELFPAY ==
[2023-04-16 20:54] LABS: Source Nasal/Nares
[2023-04-16 21:17] LABS: Hemoglobin A1C 5.4 % (<5.7)
[2023-04-16 21:27] LABS: TSH (W/Ref FT4) 1.79 uIU/mL (0.36-3.74)
[2023-04-16 21:54] LABS: COVID-19 PCR Negative (Negative)
[2023-04-18 10:43] LABS: Lyme Ab w Rflx to Lyme Confirm Negative (Negative)
[2023-04-20 15:57] LABS: Anaplasma phagocytophilum Negative (Negative); B. miyamotoi PCR Negative (Negative); Babesia divergens/MO-1 Negative (Negative); Babesia duncani Negative (Negative); Babesia microti Negative (Negative); Ehrlichia chaffeensis Negative (Negative); Ehrlichia ewingii/canis Negative (Negative); Ehrlichia muris eauclairensis Negative (Negative)
== END 2023-04-16 19:35 | disposition home or self-care (01) ==
LOC: LBN 19:34
PROVIDERS: Visit Provider Physician Assistant Medical
DX: R53.81 Other malaise (principal); Z11.52 Encounter for screening for COVID-19
CPT/HCPCS: 87635; 87798; 83036; 84443; 86618

== ENCOUNTER 2024-06-15 20:20 | Emergency (ER) | payer MEDICAID, SELFPAY ==
--- NOTE | 2024-06-15 20:15 | RT.EKG_ITS ---
APPROVED REPORT Exam: Resting ECG Reason for Exam: chest pain Patient Location: E HR:94 bpm ECG Measurements Heart Rate 94 AXIS MT 135 P 59 QRSd 81 QRS 56 QT 331 T 53 QTc 414 Conclusion Sinus rhythm...normal P axis, V-rate 60- 99 Normal Electrocardiogram
[2024-06-15 20:21] VITALS: BP 142/89; PULSE 101; RESP 20; TEMP 36.5; O2SAT 97
--- NOTE | 2024-06-15 20:26 | ED.GENADUL_ITS ---
Discharge Plan Disposition Patient Disposition: Home Condition: Good Discharge Details Clinical Impression: Chest pain Primary Care Provider: Unknown,Unknown ED Provider: Isak Vickers and New Rx's Prescriptions: Continued gabapentin 600 MG tablet 1,200 mg PO TID buprenorphine-naloxone [Suboxone] 1 EACH film 20 mg Sublingual DAILY Patient Comments: 20mg daily lisdexamfetamine [Vyvanse] 60 MG capsule 70 mg PO DAILY Discharge Instructions Instructions: Chest Pain, Adult ED Additional Instructions: You were seen in the ED for chest pain. Your EKG, chest x-ray, laboratory studies are all reassuring. You may take ibuprofen or acetaminophen for pain. You should follow-up with primary care in 1 to 2 weeks. Return to ED for new or worsening pain, difficulty breathing, syncope, neurologic change, other concerns. HPI General Mode of arrival: ambulatory . Date/Time Provider Initiated Documentation: 06/15/24 20:25 . Limitations to Documentation: no limitations . Information obtained by: patient and RN notes reviewed . HPI Narrative: Patient presenting to ED with complaint of chest pain with radiation to his left arm. Patient reports he experienced chest pain like this for the first time 3 days ago after taking his Vyvanse and accidentally drinking triple shot espresso drink. He is not describing palpitations. Describes 3 days of chest pain and pressure on the left side into the left arm. No shortness of breath, lightheadedness, diaphoresis, nausea. Does have a little bit of a runny nose but no fever, cough, sore throat, earache. Pain is not pleuritic in nature. There is no leg pain or leg swelling. He is a smoker otherwise no cardiac risk factors. Has taken aspirin but nothing else for the pain. Related Data Home Medications ?Medication ?Instructions ?Recorded ?Confirmed buprenorphine 8 mg-naloxone 2 mg 20 mg sublingual DAILY 08/15/15 06/15/24 sublingual film (Suboxone) gabapentin 600 mg tablet 1,200 mg PO TID 08/15/15 06/15/24 lisdexamfetamine 60 mg capsule 70 mg PO DAILY 10/16/16 06/15/24 (Vyvanse) Allergies Allergy/AdvReac Type Severity Reaction Status Date / Time No Known Allergies Allergy Unverified 06/15/24 20:26 General Stated Complaint: Chest Pain LENARD: 3 Review of Systems Narrative: Per HPI Exam Narrative Exam Narrative: Const: WDWN male in NAD. VS per triage. HEENT: NC/AT. Normal facial exam. Neck: Supple. Trachea midline. Lungs: Normal respiratory effort. Lungs are clear. Cor: RRR without murmur. Good radial pulses. GI: Soft/ND/NT. Neuro: A+O x 3. Normal speech, mentation, gait. Cranial nerves II - XII grossly intact. No gross motor or sensory deficit. Ext: No C/C/E. Course Vital Signs Vital signs: Vital Signs Temperature 97.7 F 06/15/24 20:21 Pulse 101 H 06/15/24 20:21 Respiratory Rate 20 06/15/24 20:21 Blood Pressure 142/89 H 06/15/24 20:21 Pulse Oximetry 97 06/15/24 20:21 Temperature 97.7 F 06/15/24 20:21 Temperature Source Oral 06/15/24 20:21 Pulse 101 H 06/15/24 20:21 Respiratory Rate 20 06/15/24 20:21 Blood Pressure 142/89 H 06/15/24 20:21 Blood Pressure Position Supine 06/15/24 20:21 Pulse Oximetry 97 06/15/24 20:21 Oxygen Delivery Method Room Air 06/15/24 20:21 Oxygen Flow Rate 0 06/15/24 20:21 Pain Level 2 06/15/24 20:21 Medical Decision Making 29-year-old male smoker presenting with left-sided chest pain radiating to left arm for the last 3 days. Pain has been intermittent but at times lasting for hours. No associated symptoms and no cardiac risk factors other than smoking. His oxygenation is normal. Pain is not pleuritic. He has low probability for PE and subsequently PERCs out. His EKG is normal per my read. Very unlikely to be cardiac in nature. Not consistent with dissection. Will obtain chest x-ray basic set of labs including a single troponin. Patient's chest x-ray per my read with no acute cardiopulmonary process. Laboratories unremarkable other than low magnesium 1.5, given p.o. magnesium for this. His troponin is normal at 5. Given 3-day history of chest pain in the low normal troponin do not feel subsequent troponins are necessary and patient is low risk for ACS. Will plan discharge home to follow-up with primary care. He may take ibuprofen or acetaminophen as needed. Return precautions provided. Imaging Data Radiologic Study: Attestation: I personally reviewed and interpreted this imaging study as follows: Imaging: X-Ray My impression: Normal chest x-ray Lab Data Lab results reviewed: Yes I reviewed the patient's lab results. Lab results narrative: see MDM ECG Data Attestation: I personally reviewed and interpreted this ECG (s) as follows: Prior ECG tracings: not available for review Interpretation: Normal EKG PFSH All Active Problems (Updated 06/15/24 @ 21:11 by Isak Vickers MD) Chest pain (Acute) Medical History Opioid dependence on agonist therapy Bipolar disorder Social History Smoking/Tobacco Use Status: Current every day Tobacco Type: cigarettes Years smoked: 10 and e-cigarettes Smoking risk assessment performed?: Yes Alcohol Intake: never Drug use: Current Sobriety Substance use type: methamphetamine and prescription drug Details: Reports sober for last 4 years Do you feel safe at home: Yes Do you feel safe in your relationship?: Yes
--- NOTE | 2024-06-15 20:30 | DI.RAD_ITS ---
Exam(s) XR CHEST 2V PA LATERAL EXAM: XR CHEST 2V PA LATERAL CLINICAL HISTORY: Chest pain. TECHNIQUE: 2D digital imaging was performed. COMPARISON: No exams were available for comparison FINDINGS: 2 views: Heart size is normal. The mediastinum is not widened. Lungs are clear. No infiltrates nor pleural effusions. IMPRESSION: No acute pulmonary findings. DATA REPOSITORY: RADIATION DOSE DELIVERED:
[2024-06-15 21:30] VITALS: BP 122/71; PULSE 92
[2024-06-15 21:30] LABS: Abs Immature Grans 0.03 10^3/uL (0.0-0.06); Absolute Basophil Count 0.06 10^3/uL (0.0-0.2); Absolute Eosinophil Count 0.19 10^3/uL (0.0-0.7); Absolute Lymphocyte Count 3.31 10^3/uL (1.2-3.4); Absolute Monocyte Count 0.88 10^3/uL (0.1-0.8); Absolute Neutrophil Count 4.82 10^3/uL (1.2-6.7); Basophils % 0.6 %; HCT 45.7 % (40.0-50.0); HGB 15.5 g/dL (13.5-17.5); Immature Grans % 0.3 %; Lymphocytes % 35.6 %; MCH 29.6 pg (27.0-33.0); MCHC 33.9 % (32.0-36.0); MCV 87 fL (80-95); MPV 10.2 fL (8.0-11.0); Monocytes % 9.5 %; Platelet Count 239 10^3/uL (130-400); RBC 5.23 10^6/uL (4.36-5.78); RDW 12.1 % (11.8-14.1); RDW-SD 39.2 fL; WBC 9.29 10^3/uL (4.4-10.8)
[2024-06-15 21:51] LABS: Anion Gap 3.9 mmol/L (3-11); BUN 13 mg/dL (7-18); CO2 35.1 mmol/L (21.0-32.0); Calcium 9.5 mg/dL (8.5-10.1); Chloride 104 mmol/L (98-107); Estimated GFR 104.48 (mL/min/1.73m2); Glucose 82 mg/dL (74-106); Magnesium 1.5 mg/dL (1.8-2.4); Sodium 143 mmol/L (136-145); Troponin I 5 ng/L (<or=76)
--- NOTE | 2024-06-15 21:55 | DI.VRAD_ITS ---
PROCEDURE INFORMATION: Exam: XR Chest Exam date and time: 06/15/2024 9:00 PM Age: 29 years old Clinical indication: Other: Chest pain TECHNIQUE: Imaging protocol: Radiologic exam of the chest. Views: 2 views. COMPARISON: CT ABDOMEN PELVIS W 12/28/2021 8:57 PM FINDINGS: Lungs: Unremarkable. No consolidation. Pleural spaces: Unremarkable. No pleural effusion. No pneumothorax. Heart/Mediastinum: Unremarkable. No cardiomegaly. Bones/joints: Unremarkable. IMPRESSION: No acute findings. Dictated and Authenticated by: Maria Elena Michel MD. Ordering:REFUGIO Parisi MD
[2024-06-15 22:11] VITALS: BP 116/68; PULSE 82; RESP 16; O2SAT 100
[2024-06-15] MEDS: Magnesium Oxide 400 MG TAB 800 MG PO (22:11)
== END 2024-06-15 22:12 | disposition home or self-care (01) ==
PROVIDERS: Emergency Provider Emergency Medicine
DX: R07.9 Chest pain, unspecified (principal); F17.210 Nicotine dependence, cigarettes, uncomplicated; F17.290 Nicotine dependence, other tobacco product, uncomplicated
CPT/HCPCS: 36415; 80048; 93005; 99285; 71046; 83735; 84484; 85025; 93010; 99284

== ENCOUNTER 2024-10-25 23:20 | Emergency (ER) | payer SELFPAY ==
[2024-10-25 23:26] VITALS: BP 125/96; PULSE 89; RESP 18; TEMP 36.6; O2SAT 96
[2024-10-25 23:30] VITALS: BP 131/74; PULSE 85; RESP 18; TEMP 36.6; O2SAT 96
--- NOTE | 2024-10-25 23:47 | ED.GENADUL_ITS ---
Discharge Plan Disposition Patient Disposition: Home Condition: Good Discharge Details Clinical Impression: Rash/skin eruption Primary Care Provider: Unknown,Unknown ED Provider: Isak Vickers Meds and New Rx's Prescriptions: New mupirocin 2 % ointment 1 applic topical BID Qty: 15 0RF Continued gabapentin 600 MG tablet 1,200 mg PO TID buprenorphine-naloxone [Suboxone] 1 EACH film 20 mg Sublingual DAILY Patient Comments: 20mg daily lisdexamfetamine [Vyvanse] 60 MG capsule 70 mg PO DAILY Discharge Instructions Additional Instructions: Difficult to say whether this is potentially related to superficial staph infection versus a contact dermatitis. Since it seemingly has become a little better with Neosporin we will switch you to mupirocin twice a day for 1 week. Do not wear anything around your wrist like a watch. Follow-up with primary care in 1 week for recheck. If it is not improving that would be more suggestive of a dermatitis and stopping the mupirocin and switching to a steroid cream. Return to ED for any significantly worsening pain, redness, swelling, fevers. Discharge Data Discharge Date/Time-TO BE ENTERED AT DEPARTURE: 10/26/24 00:15 HPI General Mode of arrival: ambulatory . Date/Time Provider Initiated Documentation: 10/25/24 23:47 . Limitations to Documentation: no limitations . Information obtained by: patient and RN notes reviewed . HPI Narrative: Patient presents to ED with a rash on both wrist. Patient reports that initially started on the right wrist. He has been applying Neosporin ointment which has seemed to help. Reports that it was more of an open sore initially. Now just has raised erythematous bumps to both wrists. Wears a watch on the left wrist. Denies wearing gloves or tight fitting longsleeve shirts. Does have a history of IVDA but clean for 6 years. Reports if anything it may be itchy as opposed to painful. Concerned that he potentially has staph infection as they keep coming up. Only present around the wrist with a couple of little bumps on the forearm. Related Data Home Medications ?Medication ?Instructions ?Recorded ?Confirmed buprenorphine 8 mg-naloxone 2 mg 20 mg sublingual DAILY 08/15/15 10/25/24 sublingual film (Suboxone) gabapentin 600 mg tablet 1,200 mg PO TID 08/15/15 10/25/24 lisdexamfetamine 60 mg capsule 70 mg PO DAILY 10/16/16 10/25/24 (Vyvanse) mupirocin 2 % topical ointment 1 applic topical BID #15 grams 10/25/24 Previous Rx's ?Medication ?Instructions ?Recorded mupirocin 2 % topical ointment 1 applic topical BID #15 grams 10/25/24 Allergies Allergy/AdvReac Type Severity Reaction Status Date / Time No Known Allergies Allergy Unverified 06/15/24 20:26 General Stated Complaint: GenMedical LENARD: 4 Exam Narrative Exam Narrative: Const: WDWN male in NAD. VS per triage. HEENT: NC/AT. Normal facial exam. Neck: Supple. Trachea midline. Lungs: Normal respiratory effort. Neuro: A+O x 3. Normal speech, mentation, gait. Cranial nerves II - XII grossly intact. No gross motor or sensory deficit. Skin: Multiple small, erythematous bumps to both wrists; a couple noted on the left forearm. A couple of bumps with questionable small pustule associated. Course Vital Signs Vital signs: Vital Signs Temperature 98 F 10/25/24 23:26 Pulse 89 10/25/24 23:26 Respiratory Rate 18 10/25/24 23:26 Blood Pressure 125/96 H 10/25/24 23:26 Pulse Oximetry 96 10/25/24 23:26 Temperature 98 F 10/25/24 23:30 Temperature Source Oral 10/25/24 23:26 Pulse 85 10/25/24 23:30 Respiratory Rate 18 10/25/24 23:30 Blood Pressure 131/74 10/25/24 23:30 Pulse Oximetry 96 10/25/24 23:30 Pain Level 0 10/25/24 23:26 Medical Decision Making Patient presenting to ED with rash around both wrists that is contact dermatitis versus possible superficial staph infection. He does think Neosporin has been helping. He does report some pruritus and not pain. Only wears a watch on the left wrist. After discussion we will try mupirocin for the next week with follow-up to determine if helping or not. Suggest not wearing his watch for the time being. If no improvement would discontinue mupirocin in favor of steroid cream. Return precautions discussed with patient. [facility] Medical History Opioid dependence on agonist therapy Bipolar disorder Social History Smoking/Tobacco Use Status: Current every day Tobacco Type: cigarettes Years smoked: 10 and e-cigarettes Smoking risk assessment performed?: Yes Alcohol Intake: never Drug use: Current Sobriety Substance use type: methamphetamine and prescription drug Details: Reports sober for last 4 years Do you feel safe at home: Yes Do you feel safe in your relationship?: Yes
== END 2024-10-26 00:15 | disposition home or self-care (01) ==
LOC: ER 10-26 00:19
PROVIDERS: Emergency Provider Emergency Medicine
DX: R21 Rash and other nonspecific skin eruption (principal)
CPT/HCPCS: 99283 ×2

== ENCOUNTER 2025-02-20 20:03 | Emergency (ER) | payer SELFPAY ==
--- NOTE | 2025-02-20 20:00 | RT.EKG_ITS ---
APPROVED REPORT Exam: Resting ECG Reason for Exam: chest pain Patient Location: E HR:74 bpm ECG Measurements Heart Rate 74 AXIS TX 129 P 10 QRSd 82 QRS 15 QT 366 T 21 QTc 407 Conclusion Sinus rhythm...normal P axis, V-rate 60- 99
[2025-02-20 20:05] VITALS: BP 124/81; PULSE 77; RESP 20; TEMP 36.9
[2025-02-20 20:38] VITALS: RESP 16
--- NOTE | 2025-02-20 20:38 | ED.GENADUL_ITS ---
Discharge Plan Disposition Patient Disposition: Home Condition: Stable Discharge Details Clinical Impression: Chest pain Primary Care Provider: Unknown,Unknown ED Provider: Pradeep Paulino Home Meds and New Rx's Prescriptions: Continued gabapentin 600 MG tablet 1,200 mg PO TID buprenorphine-naloxone [Suboxone] 1 EACH film 20 mg Sublingual DAILY Patient Comments: 20mg daily lisdexamfetamine [Vyvanse] 60 MG capsule 70 mg PO DAILY mupirocin 2 % ointment 1 applic topical BID Qty: 15 0RF Discharge Instructions Additional Instructions: Your blood work and EKG did not show any concerning findings at this time. Follow-up with your primary care provider within 1 to 2 weeks. If you feel more ill, have severe worsening pain or new symptoms such as persistent vomiting return to the emergency department for reevaluation. HPI General Mode of arrival: ambulatory . Date/Time Provider Initiated Documentation: 02/20/25 20:04 . Limitations to Documentation: no limitations . Information obtained by: patient . History of Present Illness 30 year old M presents to the emergency department with the chief complaint of chest pain, described as moderate, Quality is described as aching, and is localized to the chest. Patient extremity. Patient started experiencing this day(s) (3) and it has been constant. No relieving factors improve symptom(s), No exacerbating factors reported . Patient notes denies diaphoresis and nausea/vomiting. Patient did receive the following treatments prior to arrival, none Related Data Home Medications ?Medication ?Instructions ?Recorded ?Confirmed buprenorphine 8 mg-naloxone 2 mg 20 mg sublingual HARSHIL Y 08/15/15 02/20/25 sublingual film (Suboxone) gabapentin 600 mg tablet 1,200 mg PO TID 08/15/1501/07 lisdexamfetamine 60 mg capsule 70 mg PO DAILY 10/16/16 02/20/25 (Vyvanse) mupirocin 2 % topical ointment 1 applic topical BID #1 5 grams 10/25/24 02/20/25 Previous Rx's ?Medication ?Instructions ?Recorded mupirocin 2 % topical ointment 1 applic topical BID #1 5 grams 10/25/24 Allergies Allergy/AdvReac Type Severity Reaction Status Date / Time No Known Allergies Allergy Unverified 02/20/25 20:11 General Stated Complaint: Chest Pain LENARD: 3 Review of Systems All systems reviewed & are unremarkable except as noted in HPI and below Constitutional Constitutional: Denies chills, Denies fever(s) and Denies weakness Cardiovascular Cardiovascular: Reports chest pain Respiratory Respiratory: Denies cough Gastrointestinal Gastrointestinal: Denies abdominal pain, Denies nausea and Denies vomiting Integumentary/Breasts Skin/Breast: Denies rash Neurologic Neurologic: Denies weakness Psychiatric Psychiatric: Denies depression Exam Const General: no acute distress Orientation: alert HENPR Head: normal to inspection Ears: external ears normal General nose exam: external nose normal Mouth: moist mucous membranes Eyes General: appearance normal, both eyes and all related structures Neck Neck: normal visual inspection Resp Effort & Inspection: normal respiratory effort and able to speak in complete sentences Auscultation: clear to auscultation bilaterally Cardio Jugular venous pressure: no JVD Rate: regular rate Heart Sounds: no murmurs GI Palpation: soft and tender Skin General skin exam: no rashes or lesions noted Neuro General: patient alert and patient oriented x3 Extrem General: normal to inspection Psych Mental Status: mental status grossly normal Course Vital Signs Vital signs: Vital Signs Temperature 36.9 C 02/20/25 20:05 Pulse 77 02/20/25 20:05 Respiratory Rate 20 02/20/25 20:05 Blood Pressure 124/81 02/20/25 20:05 Temperature 36.9 C 02/20/25 20:05 Temperature Source Oral 02/20/25 20:05 Pulse 77 02/20/25 20:05 Respiratory Rate 20 02/20/25 20:05 Blood Pressure 124/81 02/20/25 20:05 Pain Level 4 02/20/25 20:05 Medical Decision Making 30-year-old male comes in with 3 days of constant anterior chest pain that radiates to his left arm. He says he has been under a lot of stress due to heavy workload at work. Denies any fevers, chills, vomiting, diaphoresis, pain with exertion. Patient has stable on arrival, he has clear lung sounds, equal peripheral pulses, no JVD, no leg swelling, no calf tenderness. I suspect he could have anxiety but will check a CBC CMP and troponins. He has clear lung sounds and no pleuritic pain so I doubt entities such as pneumothorax and he has no cough so doubt pneumonia. He has no tearing back pain and equal perip heral pulses so I doubt dissection. He is Wells score low and PERC negative so I doubt PE. Labs unremarkable. Patient was sleeping on reassessment and awakens easily to voice and states he is asymptomatic now. I suspect anxiety given rapid improvement of symptoms with 1 dose of oral lorazepam. He is stable for discharge and will follow-up with his PCP, return precautions given Differential Diagnosis Differential Diagnosis: NSTEMI, anxiety Medical Records Medical records reviewed: Yes I reviewed the patient's medical records. Lab Data Lab results reviewed: Yes I reviewed the patient's lab results. 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
[2025-02-20 20:40] LABS: Abs Immature Grans 0.01 10^3/uL (0.0-0.06); HCT 39.3 % (40.0-50.0); HGB 13.4 g/dL (13.5-17.5); Immature Grans % 0.1 %; MCH 29.1 pg (27.0-33.0); MCHC 34.1 % (32.0-36.0); MCV 85 fL (80-95); MPV 9.4 fL (8.0-11.0); Platelet Count 262 10^3/uL (130-400); RBC 4.60 10^6/uL (4.36-5.78); RDW 12.1 % (11.8-14.1); RDW-SD 37.6 fL; WBC 7.23 10^3/uL (4.4-10.8)
[2025-02-20] MEDS: LORazepam 1 MG TAB PO (20:47)
[2025-02-20 21:11] LABS: ALT 61 U/L (16-63); AST 23 U/L (15-37); Albumin 4.0 g/dL (3.4-5.0); Alkaline Phosphatase 113 U/L (46-116); Anion Gap 4.1 mmol/L (3-11); BUN 12 mg/dL (7-18); Bilirubin, Total 0.3 mg/dL (0.2-1.0); CO2 32.9 mmol/L (21.0-32.0); Calcium 9.1 mg/dL (8.5-10.1); Chloride 103 mmol/L (98-107); Estimated GFR 127.12 (mL/min/1.73m2); Glucose 98 mg/dL (74-106); Lipase 16 U/L (<78); Magnesium 1.7 mg/dL (1.8-2.4); Potassium 4.3 mmol/L (3.5-5.1); Sodium 140 mmol/L (136-145); Total Protein 7.5 g/dL (6.4-8.2); Troponin I 5 ng/L (<or=76)
[2025-02-20 21:36] VITALS: BP 137/87; PULSE 65; RESP 16; O2SAT 99
[2025-02-20 22:05] LABS: Troponin I 5 ng/L (<or=76)
[2025-02-20 22:38] VITALS: BP 128/80; PULSE 62; RESP 16; O2SAT 99
== END 2025-02-20 22:39 | disposition home or self-care (01) ==
PROVIDERS: Emergency Provider Emergency Medicine
DX: R07.9 Chest pain, unspecified (principal)
CPT/HCPCS: 99283; 99284; 36415; 80053; 83690; 93005; 83735; 84484; 85025; 93010